=== PATIENT | male | born 1930 | race Caucasian/White ===

== ENCOUNTER 2018-08-14 21:35 | Inpatient (IN) | payer OTHER, MEDICAID ==
[2018-08-14] MEDS ORDERED: fentaNYL 100 MCG/2 ML INJ IVP ONE (21:56)
[2018-08-14 22:10] LABS: PLATELET COUNT 186 10^3/uL (150-400)
--- NOTE | 2018-08-14 22:12 | EDPHY ---
H & P Smoking Status: Former smoker Time Seen by Provider: 08/14/18 21:43 HPI/ROS: CLINICAL IMPRESSION: Closed, left greater trochanteric fracture, left elbow contusion and abrasion ASSESSMENT/PLAN: 87-year-old male who lives alone in the [facility] presents to the emergency department by EMS after he fell outside while trying to walk to his out house tonight. Patient did not hit his head, is complaining only of left hip and elbow pain. He is not anticoagulated. He reports a history of hypertension, osteoporosis, and hyperlipidemia although it is unclear if he is fully compliant with his medications. He also arrives hypoxic at 78% on room air but does report that he was told he should use oxygen and never did so. He has no complaints of shortness of breath or chest pain. Initial x-rays of the left hip and pelvis show possible greater trochanteric fracture, follow-up CT scan confirms this. There is no extension into the femoral neck. X-rays of the left elbow are negative for acute bony abnormality in fracture. Patient reports his tetanus is up-to-date. He is unable to ambulate due to pain. Discussed with Dr. Ibanez with Orthopedics who will see the patient tomorrow. Patient is agreeable to admission and will be admitted to hospitalist service in stable condition. DIFFERENTIAL DX: Differential includes but not limited to left hip fracture, pelvic fracture, femur fracture, left elbow fracture, soft tissue contusion ED PROCEDURES: See lab and/or imaging results below ED COURSE: CT results discussed with Radiology, positive for closed left greater trochanteric fracture without tension into the femoral neck. No evidence of elbow fracture. Results discussed with Ortho and hospitalist. Patient wear results. Will plan to admit. Case management will likely need to be involved given patient's living situation. CHIEF COMPLAINT: Fall, left hip pain HPI: 87-year-old male presents to the emergency department by EMS after he had an unwitnessed ground level fall outside of his home. Patient [place] an out house approximately 50 yd away. Patient reports he was attempting to walk to the out house without a light, tripped and fell onto his left hip. He crawled back to his home and called EMS. Patient is accompanied by his son in the ED. According to EMS, patient lives independently in a[place]"and also is a significant hoarder. Patient's son reports that he is noncompliant with recommended oxygen use and arrives hypoxic at 79%. He states he takes"some kind of blood pressure medication"but is unclear when he last saw his primary care doctor. He is complaining only of left hip and elbow pain. He did not hit his head. He denies anticoagulation. He reports no chest pain, shortness of breath, headache , dizziness, lightheadedness. He reports his tetanus is up-to-date PAST MEDICAL HISTORY: HTN, hyperlipidemia, osteoporosis, chronic hypoxia, noncompliant on oxygen See triage summary and nurse notes for addition applicable history Pertinent Past Surgical History: None reported Family History: Noncontributory Social History: Smokes cigars, drinks occasionally, lives alone in the [facility] REVIEW OF SYSTEMS: A full 10 point review of systems was negative except for those mentioned in HPI. PHYSICAL EXAM: General Appearance: Alert, oriented, appropriate, cooperative, cachectic, NAD, hypoxic at 79% on room air on arrival HEENT: No hemotympanum or Boston sign. No scalp contusion, hematoma or sign of trauma. Oropharynx clear is no erythema or exudates, no tonsillar hypertrophy or asymmetry. Eyes: PERRLA, no acute vision change, nystagmus, swelling, discharge, pain or photosensitivity. Neck: Supple, nontender, no lymphadenopathy, no midline pain, FROM, no meningismus. Respiratory: There are no retractions, lungs are clear to auscultation. No chest wall pain or rib pain to palpation Cardiac: Regular rate and rhythm, no murmurs or gallops. Gastrointestinal: Abdomen is soft, nontender, bowel sounds normal, no masses/ hernia, no rigidity, guarding or focal peritoneal findings. Skin: Warm, dry, no rashes, no nodules on palpation, skin tear and abrasion to medial epicondyle of the left elbow.. Musculoskeletal: Reproducible pain to palpation of the greater trochanter on the left hip, pain with rocking pelvis, pain to palpation of proximal femur. Superficial skin tear to medial epicondyle of left elbow with pain to palpation. Full range of motion of the elbow. MEDICAL DECISION MAKING: Patient was seen independently. Secondary supervising physician at time of evaluation was: Dr Mcgee. Diagnosis: Closed left greater trochanteric fracture, left elbow contusion. New , requires workup Summary: See Assessment and Plan for summary of ED visit Clinical lab tests: ordered / reviewed. Independent visualization of images, tracing, or specimens: yes. Decision to obtain medical records or history from someone other than the patient: EMS, patient's son Review / Summarize previous medical records: None available Discussed patient with another provider: EMS, radiology, hospitalist, Orthopedics, Dr. Mcgee. Patient Progress: Stabilized for admission. (Mal Borjas) Constitutional: Initial Vital Signs Temperature (C) 36.6 C 08/14/18 21:44 Heart Rate 84 08/14/18 21:44 Respiratory Rate 20 08/14/18 21:44 Blood Pressure 141/73 H 08/14/18 21:44 O2 Sat (%) 79 L 08/14/18 21:44 O2 Delivery Mode Nasal Cannula O2 (L/minute) 4 Allergies/Adverse Reactions: No Known Allergies Allergy (Verified 08/17/14 13:03) Home Medications: Medication Instructions Recorded ALENDRONATE SODIUM [Fosamax 5mg] 5 mg PO DAILY 08/17/14 Aspirin [Aspirin 325 mg (OTC)] 325 mg PO DAILY 08/17/14 Carvedilol [Coreg (*)] 08/17/14 Hydrocodone/APAP 5/325 [Eagle 1 each PO Q4-6PRN PRN #14 tab 08/17/14 5/325 (*)] Mometasone/Formoterol [Dulera 200 8.8 gm IH 08/17/14 Mcg/5 Mcg Inhaler] Simvastatin [Zocor] 20 mg PO DAILY18 08/17/14 MDM/Departure - [facility] Imaging Results: Imaging Impressions Hip X-Ray 08/14/18 21:55 Impression: No evidence of acute displaced fracture as described Elbow X-Ray 08/14/18 22:13 Impression: Large soft tissue hematoma containing radiopaque foreign body without evidence of acute, displaced fracture. Extremity CT 08/14/18 22:27 Impression: Greater trochanteric fracture as described Mal Borjas was notified of these findings by telephone at 11:23 PM on 2017 Medications Given: Discontinued Medications Fentanyl (Sublimaze) 50 mcg IVP EDNOW ONE Stop: 08/14/18 21:57 Last Admin: 08/14/18 22:05 Dose: 50 mcg ED Course/Re-evaluation: PHYSICIAN DOCUMENTATION: The patient was evaluated and managed by the Physician Recorder Helper Seismograph and myself. I have reviewed the chart and agree with the findings and plan of care as documented. In addition, I examined the patient myself at 2210. History confirmed as fall, no syncope. Physical findings as follows: Cooperative but cannot walk, vital signs reviewed. Xray, CT, admission, orthopedic consultation. I am the secondary supervising physician. (Dru Mcgee) - Depart Disposition: [facility] In[facility] Acute Clinical Impression: Fracture of greater trochanter of left femur Qualifiers: Encounter type: initial encounter Fracture type: closed Fracture alignment: displaced Qualified Code(s): S72.112A - Displaced fracture of greater trochanter of left femur, initial encounter for closed fracture Condition: Fair
[2018-08-15] MEDS ORDERED: ONDANSETRON 4 MG/2 ML VIAL IVP PRN (01:28)
[2018-08-15] MEDS ORDERED: ACETAMINOPHEN 325 MG TAB PO PRN (01:28)
[2018-08-15] MEDS ORDERED: ONDANSETRON DISINTEGRATING 4 MG TAB PO PRN (01:28)
[2018-08-15] MEDS ORDERED: NS 1,000 ML IV SCH (01:30)
--- NOTE | 2018-08-15 05:20 | GHP ---
DATE OF ADMISSION: 08/14/2018 PRIMARY CARE PHYSICIAN: Patient without a PCP. SOURCE: Patient provides history, appears reliable. EMR was reviewed and case discussed with ED pro vider. CHIEF COMPLAINT: Left hip pain and fall. HISTORY OF PRESENT ILLNESS: This is a pleasant 87-year-old gentleman with a past medical history sig nificant for COPD with chronic hypoxia, noncompliant on O2, HTN, HLD, osteoporosis, reported CHF, who presents to the emergency department today following a mechanical fall at home. Patient lives in [facility] and was having sensation of urgency, reporting 1 episode of diarrhea earlier today and ra n out to get himself to the out house. However, given his sense of urgency, he did not have feel he had time to grab a flashlight. It was pitch black outside. The patient tripped and fell on a rock h e believes. He landed on his left side, left hip and left elbow. Patient was not able to get back u p due to increased pain in his left hip. Due to the cold weather in [place], patient did not want to freeze to . The patient dragged himself back to his home. By report, paramedics were conta cted. However, they had difficulties entering the home due to its condition reported as a hoarding s ituation. It took them approximately 15 minutes to enter the home and get to the patient. Preceding his fall, patient denies any chest pain, palpitations, lightheadedness, changes in vision or focal d eficits. Patient denies any current numbness, tingling, but does report persistent left hip pain. W hen patient was found, he was noted to be 79% on room air and has a reported history of having O2 rec ommended to wear continuously. However, patient has opted not to do so. He also reports that remote ly, he has been admitted for CHF exacerbations in the past and pleural effusions. Patient reports ch ronic lower extremity edema which has not significantly changed at this time and close to baseline. He denies any fevers or chills. REVIEW OF SYSTEMS: Ten systems are reviewed. They are negative except as noted above. HOME MEDICATIONS: Listed in EMR, but unable to verify are: Simvastatin 20 mg at bedtime, Dulera 200 /5 mcg inhaled, Dawson 5/325 p.r.n., Coreg, aspirin, Fosamax. PAST MEDICAL HISTORY: Significant for HTN, osteoporosis, HLD, chronic hypoxia due to COPD and noncom pliance with oxygen recommendations, reported CHF, and chronic lower extremity edema. PAST SURGICAL HISTORY: Bilateral cataract extraction with lens placement. FAMILY HISTORY: Noncontributory. SOCIAL HISTORY: Patient continues to smoke cigars. [place] house. He does have a stove for heat present. He drinks occasional alcohol. Does not use an y illicit drugs. CODE STATUS: Full. Patient would like his son, Jared Cary, to act as proxy if needed. PHYSICAL EXAMINATION: VITAL SIGNS: Upon arrival to the emergency department: Blood pressure is 141 /73, heart rate 84, respiratory rate 20, O2 saturation 79% on room air, temperature 36.6. Current vi tals available: Blood pressure is 124/78, heart rate is 84, respiratory rate 18, O2 saturation 96% o n 4 L by nasal cannula. GENERAL: No acute distress. Pleasant but frail-appearing elderly gentleman is lying quietly in bed. He is quite disheveled and cachectic appearing. HEAD: Normocephalic, atr aumatic. EYES: Extraocular muscles are grossly intact. Pupils equal, round, react to light bilater ally and symmetric. No scleral icterus or conjunctival injection. Lens reflex is appreciated bilate rally. ENT: Mucous membranes appear moist. Some mild oropharyngeal erythema without exudates. Mul tiple missing dentition with poor condition of the remainder of dentition. No nasal discharge. NECK : Supple. Trachea midline. CV: Regular rate and rhythm. No murmurs, rubs, or gallops appreciated . RESPIRATORY: Coarse breath sounds appreciated, bilateral lower lung oconnell. No wheezes or rhonch i appreciated. Patient with some minimal increased work of breathing with movement or conversation. No acute distress. ABDOMEN: Positive bowel sounds. Soft, nontender to palpation. No rebound, gua rding, or masses appreciated. : No suprapubic tenderness to palpation. No Lisa catheter in plac e. MUSCULOSKELETAL: Generalized deconditioning and weakness. Patient with 3+ pitting edema, bilate ral lower extremities. Chronic skin changes, verrucous appearance, bilateral toes. Patient with mul tiple abrasions to his lower extremities and knees. Edema below the knee. Left hip with extensive c ontusion of the lateral hip. Patient with multiple abrasions to the bilateral knees and lower extrem ities as well as upper extremities. NEURO: Grossly nonfocal. Generalized weakness. Able to move d istal extremities. Proximal lower extremity limited due to left hip pain. Patient generalized weakn ess in the upper extremities. PSYCH: Patient's thought process, content, and questions appear appro priate. He is pleasant and cooperative. LABORATORY STUDIES: WBC is 9.64, H and H are 17.1, 52.4, MCV of 104.2, platelet count is 186, neutro catie percent 82.9%. No bands. Sodium is 138, potassium is 4.3, chloride 109, CO2 is 23, anion gap i s 6, BUN 33, creatinine is 1.2, GFR 58, glucose is 105, calcium is 8.7. IMAGING STUDIES: Hip x-ray: Negative evidence for acute displaced fracture. Moderate degenerative changes seen in the hips with disk space narrowing, marginal osteophyte formation. No evidence of av ascular necrosis. Scattered radiopaque densities seen overlying the pelvis and perineum. Elbow seri es on the left: Large soft tissue hematoma. Continued radiopaque foreign body without evidence of a cute displaced fracture. Left lower extremity CT showing a greater trochanteric fracture that is mil dly displaced. Femoral neck appears grossly intact. Large amount of soft tissue edema and hemorrhag e seen in the subcutaneous tissues of the left thigh. ASSESSMENT AND PLAN: Malcolm 87-year-old gentleman who sustained a mechanical fall at home, who pre sents with complaints of left hip pain. 1. Left mildly displaced trochanteric fracture. Orthopedics has been consulted and will see the pat ieholli in the morning. He has been made n.p.o. pending their evaluation and recommendations. 2. Acute left hip pain due to trauma. P.r.n. Tylenol, Dawson, and morphine for severe pain. At this time, patient reports that his pain is improved with just being still. Given his respiratory status , we will try to minimize narcotic use. 3. Acute on chronic hypoxia. Patient without any increased exacerbation at this time. Patient does note a history of congestive heart failure. Chest x-ray has been ordered. Echocardiogram in the mo rning. Offered patient nebulizer treatments and/or breathing treatments, and he declined at this lina e. He is saturating well with 4 L of oxygen by nasal cannula. 4. Benign essential hypertension. Blood pressures are acceptable at this time. We will need to shawn eric patient's home med rec before resuming his antihypertensives. 5. Hyperlipidemia. Resume statin when med rec verified. 6. Osteoporosis. The patient is on Fosamax at home. 7. Fluid, electrolyte, nutrition: Saline lock IV at this time, pending additional workup for conges tive heart failure. Electrolytes will be monitored and replaced if needed. The patient appears curr ently stable. Initiate diuresis in the morning. N.p.o. status pending Orthopedic's recommendations. 8. Prophylaxis. Holding sequential compression devices due to diffuse abrasions to bilateral lower extremities. Holding anticoagulation also at this time pending surgery recommendations. 9. Code status is full. Patient desires his son, Jared, to act as proxy if needed. 10. Disposition: The patient admitted to inpatient status on the Med/Surg floor for additional eval uation and treatment regarding his left trochanteric fracture and additional evaluation of patient's hypoxia and dyspnea. /[id number]/MODL
[2018-08-15 08:39] LABS: PLATELET COUNT 155 10^3/uL (150-400)
--- NOTE | 2018-08-15 08:57 | GCON ---
REASON FOR CONSULTATION: I was asked to evaluate this patient by the emergency room. HISTORY OF PRESENT ILLNESS: The patient sustained a fall earlier resulting in left hip pain. I revi ewed the images. They demonstrate a left greater trochanter fracture, without extension into the int ertrochanteric region. IMPRESSION: Left greater trochanteric fracture, closed. ASSESSMENT/PLAN: This is a nonoperative fracture. The patient can weightbear as tolerated. He may have pain with abduction, so I think it is reasonable to place him on abduction precautions. He can, otherwise, weightbear as tolerated and have a regular diet today. I will evaluate him shortly. If there are any questions, please do not hesitate to contact me further. /[id number]/MODL
--- NOTE | 2018-08-15 10:46 | PDMN ---
Medical Necessity Medical necessity: Pt meets inpt criteria per MD order and Musculoskeletal Disease GRG. 87 y/o presents w/acute L hip pain after mech fall, admitted w/L displaced trochanteric fx, ortho consult- fx non-operative, also acute on chronic hypoxia requiring 3-4 L O2. PMH includes hypoxia due to COPD and noncompliance w/O2 recommendations, HTN, osteoporosis, chronic LE edema, and reported CHF. ECHO, PT/OT, and wound care consult pending. Est LOS>2MN for ongoing eval/management of above.
--- NOTE | 2018-08-15 12:54 | ECHO ---
[email or web address] [address] [address] Main: [phone] Fax: Transthoracic Echocardiogram Name: COLIN MCADAMS MR#: [id number] Study Date: 08/15/2018 Study Time: 08:01 AM Date of : 1930 Age: 87 year(s) Height: 182.9 cm (72 in.) Weight: 63.5 kg (140 lb.) BSA: 1.83 m2 Gender: Male Examination: Echo Indication: Dyspnea/edema Image Quality: Technically Difficult Contrast: Requested by: Jessica Fuentes BP: 102 mmHg/65 mmHg Heart Rate: Rhythm: Indication: Dyspnea/edema Procedure Staff Fiction And Nonfiction Prose Writer: Devora Cox RDCS Reading Physician: Anthony Santiago MD Requesting Provider: Conclusions: Normal size left ventricle. Normal global systolic LV function. The ejection fraction is estimated to be 70-75 %. No regional wall motion abnormality. Severely dilated right ventricle. Moderately to severely reduced right ventricular function. The left atrium is normal in size. The right atrium is moderately dilated. Trivial mitral valve regurgitation. Moderate aortic cusp calcification is present. Moderate aortic valve regurgitation is present. No aortic valve stenosis is present. Moderate tricuspid regurgitation is present. The pulmonary artery pressure is severely increased. Right ventricular systolic pressure measures 79mmHg. The IVC is dilated. No pericardial effusion. Measurements: Chambers Valvular Assessment AV/MV Valvular Assessment TV/PV Normal Normal Normal Name Value Range Name Value Range Name Value Range IVSd (2D): 0.9 cm (0.6 cm-1.1 AV Vmax: 1.34 m/s (1 m/s-1.7 TR Vmax: 3.83 mm/s ( - ) cm) m/s) TR PGmax: 59 mmHg ( - ) LVDd (2D): 4.4 cm (4.2 cm-5.9 AV meanP mmHg ( - ) syst. PAP: 79 mmHg ( - ) cm) MV E Vmax: 0.38 m/s ( - ) LVDs (2D): 2.4 cm (2.1 cm-4 MV A Vmax: 0.54 m/s ( - ) cm) MV E/A: 0.70 ( - ) LVPWd (2D): 0.9 cm (0.6 cm-1 cm) Patient: COLIN MCADAMS Study Date: 08/15/2018 Page 1 of 2 08:01 AM LVOTd 2.4 cm 2.4 cm mm LVEF (2D): 78 (>=54 %) EF Range: 70-75 % Continued Measurements: Chambers Valvular Assessment AV/MV Valvular Assessment TV/PV Name Value Name Value Name Value LADs: 2.1 cm MV E' Septal: 0.04 m/s CVP (est.): 20 mmHg MV E/E' Septal: 8.70 MV E/E' Lateral: 4.40 Findings: Left Ventricle: Normal size left ventricle. No LV hypertrophy. Normal global systolic LV function. The ejection fraction is estimated to be 70-75 %. No regional wall motion abnormality. Grade 1 diastolic dysfunction (abnormal relaxation). Right Ventricle: Severely dilated right ventricle. Moderately to severely reduced right ventricular function. There is a moderator band noted in the right ventricle. Left Atrium: The left atrium is normal in size. Right Atrium: The right atrium is moderately dilated. Mitral Valve: There is mild thickening of the mitral valve leaflets. Moderate mitral annular calcification. Trivial mitral valve regurgitation. Aortic Valve: Mild aortic cusp calcification is noted. Moderate aortic cusp calcification is present. Moderate aortic valve regurgitation is present. No aortic valve stenosis is present. Tricuspid Valve: There is mild thickening of the tricuspid valve leaflets. Moderate tricuspid regurgitation is present. The pulmonary artery pressure is severely increased. Right ventricular systolic pressure measures 79mmHg. RVSP is 79mmHG.. Pulmonic Valve: Pulmonary valve not well visualized. Aorta: The aorta is normal. IVC: The IVC is dilated. Pericardium: No pericardial effusion. (No Signature Object) Patient: COLIN MCADAMS Study Date: 08/15/2018 Page 2 of 2 08:01 AM [id number]
--- NOTE | 2018-08-15 13:22 | HOSPPROG ---
Hospitalist Progress Note Assessment/Plan: Mr Cary is an 87-year-old gentleman who sustained a mechanical fall at home, who presents with complaints of left hip pain. First encounter, chart reviewed. *Left mildly displaced trochanteric fracture. -evaluated by ortho - surgery not recommended * Acute left hip pain due to trauma. - P.r.n. Tylenol, [place], and morphine for severe pain. * Acute on chronic hypoxia. - on 4 liters - Chest x-ray shows copd, emphysema - Echocardiogram show severely dilated r ventricle and mod to severely reduced RV function - suspect this is from MYRNA, emphysema - PE could be in the differential *cardiomyopathy -will ask cardiology to see -on ACEI and beta zane, but holding due to low bp -hx of an ME per family -also has hx of alcohol use * hypertension -now hypotensive * Hyperlipidemia. -Resume statin * Osteoporosis. 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 feet, toes *underweight w a BMI of 19 *plan: spoke w Dr Santiago, cardiology will see. Will check a BNP in the morning. Spent > 30 minutes caring for the patient, discussing code status with the patient's son, this needs to be further discussed. [place], but has heat. Drives to get food weekly. Family is very concerned. He has mulitple abrasions, skin tears, dirt under his nails. They will look into other living arrangements. He will need a SNF at wa Subjective: Scott isn't having much pain while resting. Objective: Vital Signs Temp Pulse Resp BP Pulse Ox 36.9 C 70 16 89/43 L 96 08/15/18 11:44 08/15/18 11:44 08/15/18 11:44 08/15/18 11:44 08/15/18 11:44 Laboratory Results 08/15/18 07:55 08/15/18 07:55 08/14/18 08/15/18 08/16/18 05:59 05:59 05:59 Intake Total 0 320 Output Total 500 Balance 0 -180 - Physical Exam Constitutional: chronically ill appearing, unkempt, other (thin) Eyes: PERRL Ears, Nose, Mouth, Throat: hearing normal Cardiovascular: regular rate and rhythym Respiratory: no respiratory distress, bronchial breath sounds, rhonchi (at right base) Skin: warm, other (right hand reddened, multiple hughes scrapes, 3 + pitting lower ext edema, no palpable pulses, but warm. Skin on toes, heels w lichen ( thick). ) Neurologic: AAOx3 Psychiatric: interacting appropriately, poor insight ICD10 Worksheet Patient Problems: Problems Problem Status Onset Fracture of greater trochanter of left femur Acute
[2018-08-15] MEDS ORDERED: NS 250 ML IV ONE (13:26)
[2018-08-15] MEDS: FLUTICASONE/SALMETER 250/50MCG DISKUS IH SCH ×2 (13:37→21:31)
--- NOTE | 2018-08-15 14:40 | ASMTCMCOM ---
CM Note CM Note Notes: Pt with numerous co-morbidities here for non-operative L trochanteric fx. [place] to his outhouse. EMS reports a hoarding situation and difficulty entering home. Pt PT/OT eval on hold today as pt is hypotensive. Pt likely needs SNF, [facility] will have to approve after therapy evals are in [facility]. Pt son Jared present at bedside, numbers in chart. Spoke with pt and son, pt verbalizes understanding of need for SNF and likely not returning to his home in [place] after rehab. Informed pt and son the [facility] is [facility]. CM to follow. D/c plan of care: Likely [facility] if [facility] approves. Date Signed: 08/15/2018 02:40 PM Electronically Signed By:HENRY Barber
--- NOTE | 2018-08-15 14:53 | WOCRNPDOC ---
WOCRJaren Advanced Assessment Note - Skin Integrity Problem, Advanced Assess Right Lower Leg Blister Dressing Type: Open to Air Exudate Amount: None Integumentary Issue Intervention: Dressing Applied Libra Wound Tissue: Lipodermatosclerosis, Hemosiderin Staining, Venous Dermatitis , Shiny, Taught, Xerotic, Hair Loss Pulse Location & Description: unable to dopplar pulses, though RN Meagan was able to obtain bilateral DP pulses by dopplar. Extremity Temperature: Warm Peripheral Edema Location & Description: 3+ pitting Skin Integrity Problem Comment: Patient with venous dermatitis and LEVD. SHORTY's will clarify whether or not it is safe to apply high compression. Discussed LEVD with patient and friends in room. No venous ulcerations at this time and patient reports having no history of them. Patient amenable to light compression at this time. He will not be able to put on his compression socks at home by himself. Recommend a "vianney" to help him apply his stockings. This was conveyed to ed case manager. Blister is likely from edema and not related to venous insufficiency. Patient with lichenification on bilateral feet/heels/ toes. Will initiate atractain cream for lichenification. Onychomycosis; needs to see a port steward when d/c d from hospital. Education pamphlet re: LEVD will be provided. Measurement for right calf: 36 cm and left 38 cm. Spandigrip F provided. Wound care will sign off.
--- NOTE | 2018-08-15 15:27 | ASMTCMCOM ---
CM Note CM Note Notes: Per wound care pt will require vianney for applying compression socks if he goes home, pt unable to put them on himself. CM to follow up with OT if pt does not get approved for SNF by [place]. Date Signed: 08/15/2018 03:27 PM Electronically Signed By:HENRY Barber
[2018-08-15] MEDS: HYDROCODONE/APAP 5/325 TAB PO PRN (15:41)
[2018-08-15] MEDS: ALBUTEROL 60 PUFFS/8 GM MDI IH PRN (16:53)
[2018-08-15] MEDS ORDERED: FUROSEMIDE 20 MG/2 ML VIAL IVP ONE (16:59)
[2018-08-15] MEDS ORDERED: CARVEDILOL 6.25 MG TAB PO SCH (18:00)
--- NOTE | 2018-08-15 18:24 | GPROG ---
I saw and evaluated Scott today at the bedside. He complains of left hip pain. He does have some lef t hip pain with axial loading and logroll, but not excruciatingly so. He also has tenderness to palp ation over the greater trochanter. He has pain with active abduction. IMAGING REVIEW: See my prior notes. IMPRESSION: Left greater trochanter fracture without extension into the intertrochanteric region. ASSESSMENT/PLAN: The patient has a left nondisplaced closed fracture of the greater trochanteric reg ion. From my perspective, this can be treated non surgically. He should be placed on abduction prec autions (no passive adduction and no active adduction) for a total of 6 weeks. It appears as though the patient has a number of social issues that probably preclude his medical ones at this time. I wi ll defer entirely to the medical team regarding further management of this. I am happy to see the loc nixon in the hospital as long as he is cared for, and I am happy to answer any questions moving forwa rd. Upon discharge, would like to see the patient in a couple weeks following his discharge to see h ow well he has progressed with any sort of home therapy. If any further questions arise, please do n ot hesitate to contact me on my cell phone at [phone]. /[id number]/MODL
--- NOTE | 2018-08-15 19:19 | GCON ---
CARDIOLOGY CONSULTATION INDICATION FOR CARDIOLOGY CONSULTATION: Dilated right RV with cardiomyopathy. REQUESTING PROVIDER: Tanisha Blunt NP, Hospital Services. HISTORY OF PRESENT ILLNESS: The patient is an 87-year-old male who lives alone in [place]. Patient is a poor historian, most of the HPI is from chart review. The patient had suffered a mechanical fall on August 14. He was unable to walk. EMS was called, he was brought into the emergency department, it was found that he had a left greater trochanter fracture. He has been evaluated by Orthopedic, and found that this is a nonsurgical fracture. Also upon arrival, he was found to be extremely hypoxic, and did undergo echocardiogram as part of his workup, it did note that he had normal LV size with normal LV systolic function, his EF was estimated between 70-75%, with no regional wall abnormalities, he was noted to have a severely dilated RV, with moderate to severe reduced RV function, his LA is normal, his RA is moderately dilated, he was noted to have trivial MR, moderate AI, moderate TR, and severe pulmonary pressures with RVSP of 79 mmHg with dilated inferior vena cava. No pericardial effusion. Per chart, the patient has significant past history that includes COPD with chronic hypoxia, noncompliant to O2, hypertension, hyperlipidemia, current smoker, there is also a question about some history about previous [place], which the patient denies of any previous stents. He has also been reporting approximately 10 years ago being hospitalized for CHF at a [facility], is uncertain which. At the current time, the patient reports ongoing shortness of breath, but reports no history of chest pressure or pain. Reporting no palpitations, denies of any orthopnea, PND, near-syncope or syncopal events. Does report he has chronic peripheral edema. Reporting no symptoms suggesting of TIA or CVA. Denies of any recent fevers, chills, night sweats. PAST MEDICAL HISTORY: 1. Chronic obstructive pulmonary disease with chronic hypoxia, which he has been known to be noncompliant with O2. 2. Hypertension. 3. Hyperlipidemia. 4. Reported history of questionable [place] in the past. 5. Reporting history of congestive heart failure in which he was hospitalized 10 years ago. 6. Current smoker. PAST SURGICAL HISTORY: Bilateral cataract extraction with lens placement. SOCIAL HISTORY: Patient lives alone in a house with no running water, but with heat. He continues to smoke on a daily basis. He has a history of alcohol abuse and occasionally continues to use EtOH, denies of any illicit drug use. FAMILY HISTORY: Noncontributory. ALLERGIES: No known allergies. HOME MEDICATIONS: Multivitamin 1 tablet p.o. daily, lisinopril 2.5 mg p.o. daily, herbs and supplements p.o. daily, Advair 250/50 one puff inhaled twice daily, Proscar 5 mg p.o. daily, Carvedilol 6.25 mg p.o. twice daily with meals, Flomax 0.8 mg p.o. at bedtime, Zocor 40 mg p.o. at bedtime, nitroglycerin 0.4 mg subcu q.4 minutes p.r.n., furosemide 20 mg p.o. daily, albuterol 1-2 puffs inhaled q.4 hours p.r.n. LABORATORY STUDIES: Drawn today show WBC of 7.13, hemoglobin 14.5, hematocrit 44.7, platelet count of 155, sodium 137, potassium 4.0, chloride 110, CO2 26, BUN 33, creatinine 1.0, glucose 75, calcium 7.9. PHYSICAL EXAMINATION: GENERAL APPEARANCE: Thin, cachectic, elderly male. He is alert to person and place, but uncertain about time and situation. VITAL SIGNS: Current vital signs are blood pressure 101/67, heart rate 82 and irregular. Respirations are 22, saturating 85% on 4 L nasal cannula, temperature 37.4 degrees Celsius. HEENT: Head is normocephalic. Lips and tongue are pink and moist with no signs of cyanosis. Conjunctivae pink. NECK: +2 carotid pulses bilateral, patient noted to have significant JVD of at least 6 cm above the sternal notch at a 45 degree angle. No auscultated bruits. RESPIRATORY: Patient with rhonchi in upper lobes, mild rales noted in bases bilateral. No accessory muscle use. No intercostal muscle retraction noted. CARDIAC: Regular rate, irregular rhythm, S1, S2, no S3 or 4, 1-2/6 systolic murmur noted along the left sternal border. ABDOMEN: Soft, nontender, bowel sounds x4 quadrants, no organomegaly, no palpable masses. SKIN: Pale, warm, dry, +2 to 3 peripheral edema bilateral lower extremities to knees. VASCULAR: +2 carotids bilateral, +1 radials bilateral, +1 post tibial pulses bilateral. STUDIES: Echocardiogram as mentioned above, CT of the left lower extremity showing greater trochanter fracture. Chest x-ray done on the day of admission showing prominent interstitial markers inferior aspect of right upper lobe lateral as well as right midlung lateral. This could be related to some fibrotic changes although in interstitial infiltrates pneumocystis cannot be ruled out. Hyperexpanded lungs with underlying COPD and possible emphysema, old healed fractures of posterior lateral ribs, [id number] anterior wedge compression fracture superior of T3. Electrocardiogram done at the time of my examination showing sinus rhythm with PVCs, occasional bigeminy. Q-waves noted in V1 and V2, low voltage. With inverted T-waves in V1 and V2 questioning possible anterior septal infarct. 1. RV dilated cardiomyopathy: Patient echo showing significant reduced RV function, normal LV function. Patient also noted to have significant elevated pulmonary pressures, significant pulmonary hypertension. Potential cause is his COPD, but concerning about PE. I have discussed with hospital services: I do think that CTA of the chest should be done at some point during this hospitalization. 2. Acute on chronic hypoxia: At this time, the patient is desaturating on his oxygen, he has significant JVD, he has rales in his bases. Appears to be somewhat fluid overloaded.. I have ordered Lasix therapy for tonight. Continue on oxygen therapy, continue on COPD medications as ordered by hospital services. 2. Hypertension: Patient with noted history of hypertension, currently hypotensive, and required IV bolus of saline to help elevate blood pressure. Recommend no further episodes of IV fluid. Currently CATHY inhibitors on hold. He also has carvedilol ordered, but has not received a dose due to lower blood pressures. At this time, I will switch him over to metoprolol tartrate, which should not drop his blood pressure as significant as carvedilol, and allow him to stay on a beta-zane. , I do think the patient should be transferred to PCU for closer monitoring. If need be for extended hypotension, vaso pressors therapy should be considered. This was discussed with hospitalist service. 3. History of potential coronary artery disease: Per the chart the patient family reported previous [place]. Patient does not remember TX, but said he had heart failure. He reports no chest pain, pressure or symptoms suggesting of ischemia. His echocardiogram did not note any LV dysfunction. We will start him on low-dose aspirin therapy. He has been resumed on statin therapy for secondary risk prevention. Beta blockage therapy as mentioned above. 4. Hyperlipidemia: Patient with history of hyperlipidemia, currently on statin therapy. 5. Left trochanteric fracture, per orthopedic nonsurgical. Defer to hospitalist services and orthopedic for pain management. Thank you for the consultation. We will be glad to follow along with you. /[id number]/MODL MTDD
[2018-08-15] MEDS: METOPROLOL TARTRATE 25 MG TAB PO SCH (21:00)
[2018-08-15] MEDS: ATORVASTATIN CALCIUM 20 MG TAB PO SCH (21:02)
[2018-08-16] MEDS: HYDROCODONE/APAP 5/325 TAB PO PRN (08:44)
[2018-08-16] MEDS: ASPIRIN 81 MG CHEWABLE TAB PO SCH (08:44)
[2018-08-16] MEDS: METOPROLOL TARTRATE 25 MG TAB PO SCH (08:44)
[2018-08-16] MEDS: FLUTICASONE/SALMETER 250/50MCG DISKUS IH SCH ×2 (08:50→21:06)
[2018-08-16] MEDS ORDERED: IOPAMIDOL (ISOVUE 370) 100 ML BTL IV ONE (10:28)
[2018-08-16] MEDS ORDERED: IOPAMIDOL (ISOVUE-300) 100 ML BTL ONE (11:22)
--- NOTE | 2018-08-16 13:33 | HOSPPROG ---
Hospitalist Progress Note Assessment/Plan: Mr Cary is an 87-year-old gentleman who sustained a mechanical fall at home, who presents with complaints of left hip pain. First encounter, chart reviewed. *Left mildly displaced trochanteric fracture. -evaluated by ortho - surgery not recommended * Acute left hip pain due to trauma. - P.r.n. Tylenol, [place], and morphine for severe pain. * Acute on chronic hypoxia. 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 Lewis, Pulmonology, who will see patient, f/u official recommendations - Will order Heparin gtt for now *cardiomyopathy - Cardiology consulted on 08/15 s/p dose of IV lasix - on ACEI and beta zane, but holding due to low bp - hx of an [place] per family - also has hx of alcohol use - Continue home ASA * hypertension -now hypotensive, holding medications * Hyperlipidemia. -Resume statin * Osteoporosis. 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 feet, toes *underweight w a BMI of 19 Subjective: Patient reports no complaints this AM Objective: Vital Signs Temp Pulse Resp BP Pulse Ox 36.6 C 74 1 L 91/56 L 95 08/16/18 10:59 08/16/18 10:59 08/16/18 10:59 08/16/18 10:59 08/16/18 10:59 Laboratory Results 08/15/18 07:55 08/16/18 03:44 08/15/18 08/16/18 08/17/18 05:59 05:59 05:59 Intake Total 0 1020 Output Total 1980 200 Balance 0 -960 -200 - Physical Exam Constitutional: chronically ill appearing, unkempt Eyes: PERRL Ears, Nose, Mouth, Throat: moist mucous membranes Cardiovascular: regular rate and rhythym Respiratory: reduced air movement Gastrointestinal: soft, non-tender abdomen Musculoskeletal: pain with ROM Neurologic: AAOx3 Psychiatric: interacting appropriately ICD10 Worksheet Patient Problems: Problems Problem Status Onset Fracture of greater trochanter of left femur Acute
[2018-08-16] MEDS ORDERED: HEPARIN 10,000 UNIT/10 ML MDV (1,000 UNIT/ML) IVP PRN ×3 (13:44→17:55)
[2018-08-16] MEDS ORDERED: HEPARIN/DEXTROSE 500 ML IV SCH ×2 (13:45)
--- NOTE | 2018-08-16 13:56 | PDCARPN ---
Cardiology Progress Note Chief Complaint: Patient reporting hip pain. Assessment/Plan: Assessment: 87-year-old with history of COPD, chronic hypoxia (non compliant O2), hyperlipidemia attention, hyperlipidemia, current smoker, and questionable history of previous [place], and reported history of CHF hospitalization 10 years ago. Admitted on 08/14/2018, for mechanical fall, with diagnosis of left greater trochanter fracture without extension into the intertrochanteric region. Part of his workup, underwent echocardiogram, on 08/15, noting normal LV systolic function, EF of 70 75% with no regional wall motion abnormality. Severely dilated RV with moderate to severely reduced RV function. Moderate AI , moderate TR, severe pulmonary artery pressures with RVSP of 79 mm Hg. IVC dilation. No pericardial effusion. Femoral fractures been evaluated by Orthopedics, and felt to be nonsurgical. Patient reporting no history of chest pain or pressure. Has been noted since hospitalization to have episodes hypotension, and desaturation. 08/16/2018: Patient saturation improved today after low-dose Lasix given yesterday. Unfortunately remains hypotensive with systolic blood pressure averaging low 100s, mid 90s. Laboratories today showing BNP 8880. CTA of chest done, suggesting chronic partial thrombus in both main pulmonary arteries and bifurcating with enlarged pulmonary arteries centrally. Mildly dilated ascending aorta at 4.0 cm, arthrosclerotic calcification coronary arteries, severely underlying is central lobular emphysema both lungs. Small left pleural effusion and minimal right pleural effusion. Patient reports no chest pain pressure or symptoms suggesting of cardiac ischemia. Continues cardiac monitoring showing sinus rhythm with occasional PVC. No other malignant arrhythmias or pauses. Plan: 1. 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 Have discussed with Dr. Dawkins, Dr. Cruz and Dr. Fajardo. Would recommend anticoagulation, Dr. Dawkins would like pulmonology to see before final decision , referral has been made. 2. Right-sided heart failure: RV dilated cardiomyopathy by echocardiogram, probable cause by pulmonary embolism and long history of COPD. Severe pulmonary hypertension echo. Elevated BNP, significant lower extremity edema. Patient has been hypotensive, and with his RV cardiomyopathy, he is preload dependent. Will hold diuresis today. 3. Acute on chronic hypoxic: SpO2 more stable today after gentle diuresis last evening with Lasix. No rales noted in bases this morning. Patient continue on oxygen therapy in good pulmonary toilet. 4. Coronary artery disease: Per patient's family he has had a previous [place]. Coronary arthrosclerosis calcification noted on CT scan. Patient reporting no chest pain or pressure suggesting of ischemia. Echocardiogram noting normal LV systolic function with no wall motion abnormality. Continue on aspirin therapy. Patient has been resumed on statin therapy. 5. Hypertension: Patient has been hypotensive during hospitalization. Home lisinopril has been discontinued. Had been transition to metoprolol tartrate from carvedilol, but continues to be hypotensive. Will discontinue metoprolol at this time. Continue monitor. 6. Hyperlipidemia: Resumed on statin therapy. 7. Left hip fracture: Orthopedics has seen, felt nonsurgical. Defer to them and hospitalist services for pain management. 08/16/18 13:53 Subjective: He reports no chest pain or pressure. He reports his shortness of breath has improved. Denies of any palpitations, lightheadedness, near-syncope or syncopal events. Reviewed/Discussed With: hospitalist (Dr. Dawkins), other (Dr. Cruz and Dr. Fajardo) Objective: Vital Signs (8 Hrs) Temp Pulse Resp BP Pulse Ox 08/16/18 10:59 36.6 C 74 1 L 91/56 L 95 08/16/18 08:05 83 L 08/16/18 07:44 37.1 C 73 18 99/50 L 92 Intake/Output (24 Hrs) 08/15/18 08/16/18 08/17/18 05:59 05:59 05:59 Intake Total 0 1020 Output Total 1979 Balance 0 -960 -200 Intake: Oral (ml) 0 770 IV Infused (ml) 250 Ns 250 ml @ 125 mls/hr IV 250 ONCE ONE Rx#:[id number] Output: Urine (ml) 1979 200 Bedpan 250 Urinal 1730 200 Other: Weight 63.503 kg 63.503 kg Number of Voids Urinal 5 Result Diagrams: 08/15/18 07:55 08/16/18 03:44 - Physical Exam Constitutional: no apparent distress, cachectic (BMI 19. ) Ears, Nose, Mouth, Throat: moist mucous membranes Cardiovascular: regular rate and rhythm, no rubs, jugular vein distention (5-6 cm above sternal notch), pulses symmetric bilat, No carotid bruit Peripheral Pulses: 2+: carotid (R), carotid (L) Respiratory: other (Diminished in bases bilateral, no rales noted today. No wheezing. Rhonchi that clears with cough.) Gastrointestinal: normoactive bowel sounds Skin: warm, No no edema (+3 peripheral edema bilateral lower extremities to thighs.) Neurologic: No AAOx3 (Alert to place in time, uncertain of the person and time) Psychiatric: cooperative, interactive, following commands ICD10 Worksheet Patient Problems: Problems Problem Status Onset Fracture of greater trochanter of left femur Acute
[2018-08-16 15:29] LABS: INR 1.19 (0.83-1.16); PROTIME(PATIENT) 15.3 SEC (12.0-15.0)
[2018-08-16] MEDS ORDERED: FUROSEMIDE 40 MG/4 ML VIAL IVP ONE (17:32)
--- NOTE | 2018-08-16 17:32 | PDCONSULT ---
Documentation Analyst Note: ASSESSMENT 87-year-old male with severe COPD and tobacco dependence admitted after a fall in found to have acute on chronic hypoxemic respiratory failure, severe pulmonary hypertension with overt RV failure as well as imaging concerning for atypical chronic thromboembolic disease. # acute on chronic hypoxemic respiratory failure # acute right ventricular heart failure # severe pulmonary hypertension # chronic thromboembolic disease. Radiographic appearance is not typical for acute embolism or classic for chronic thromboembolic disease but is more consistent longstanding COPD and possible ASD leading to chronic clot lining the proximal PAs # tobacco dependence. Last smoked 9 days ago. 80+ pack year history # hyperlipidemia PLAN # initiate Lasix and spironolactone (K sparing effect and RV remodeling) # fluid removal should improve RV coupling and improve hemodynamics # Initiate full-dose anticoagulation with heparin infusion # no role for thrombolysis # no role for hypercoagulability workup # consider limited TTE with bubble to assess for shunt. However this would not roving changer in the acute setting # patient is NOT a surgical candidate for pulmonary endarterectomy given advanced COPD, age and functional status # unfortunately, PH specific therapies are relatively contraindicated given patient's severe lung disease and systemic hypotension and would likely worsen his condition # inhaled beta agonists have been shown to improve pulmonary vascular reserve and cardiac output without increases in LVEDP. Circ Res. 2018 Jun 17 # if patient further decompensate suggest transfer to the ICU for vasopressor support # if vasopressor support is needed suggest low-dose dopamine and vasopressin # would defer cardiac catheterization as it would not acutely roving changer # agree with statin and aspirin therapy as both have disease attenuating properties in COPD # suggest discharging patient on oral Eliquis as he is unlikely to be compliant with Lovenox and lives too far away for regular INR checks with warfarin. # consider calcium and vitamin-D supplementation given likely osteoporosis # suggest having goals of care and advanced directive conversation with patient. He would not survive a cardiopulmonary arrest and has high likelihood of coding upon induction for intubation. # His one year risk of mortality is very high IMAGING 08/16/2018 CTA chest severe emphysematous changes throughout lung oconnell. Moderate size filling defects in bilateral proximal pulmonary arteries with eccentric Shabbir lined thrombus. Bronchial artery collaterals suggest chronic pulmonary hypertension and chronic thromboembolic disease. Odd shaped appearance of organized thrombus however this can be seen in patients with ASD and chronic thromboembolic pulmonary hypertension. No significant distal vessel dropout. Imaging is not classic for CTEPH 08/15/2018 TTE normal LV size and function. Severely dilated right ventricle. Moderate to severely reduced right ventricular function. LA normal in size. RA moderately dilated. Moderate aortic regurgitation, RVSP measured 79%. IVC dilated CONSULT I was asked by Dr. Ramón Dawkins of [facility] to evaluate this patient for pulmonary embolism and RV failure HPI Scott is a very pleasant 87-year-old male with severe COPD, chronic hypoxemic respiratory failure non adherence to oxygen therapy an 80 pack year smoking history who was initially admitted after mechanical fall and found to have a left hip fracture. As part of the preoperative workup he underwent an echocardiogram concerning for RV failure pulmonary hypertension. His oxygen saturation briefly improved after acute given 1 dose of IV Lasix. Patient denies lightheadedness, syncope, fevers or chills, nausea vomiting, chest pain. He does complain of mild chronic shortness of breath worse with exertion. Allergies No known drug allergies Past medical history Patient is followed head [place]. He has systemic hypertension, osteoporosis, hyperlipidemia, chronic hypoxemic respiratory from longstanding COPD and noncompliant with oxygen therapy, chronic lower extremity edema, tobacco dependence Social history Patient lives alone in a cabin in [place] min outside of [place]. He smokes cigars daily. Family history No family history of chronic thromboembolic disease. Review of systems A comprehensive 10 point review of systems was obtained is negative except as per HPI Physical exam Vitals reviewed pulse 78, blood pressure 118/78 map 91, respiratory rate 20 93% on 5 L nasal cannula GEN: Cachectic disheveled male no acute distress NEURO: A&Ox3, CN 2-12 GI HEENT: PERRL, EOMI, MMM, OP clear NECK: supple, trachea midline CHEST normal shape, no pes excavatum CVS: rrr prominent S2, displaced PMI, no gallops appreciated on my exam PULM: CTA B, no wheezes/rales/rhonchi ABD: soft, NT, ND, NABS EXT: To 3+ bilateral lower extremity edema SKIN: warm, dry, intact, no rash PSYCH CAM negative, appropriate affect Labs reviewed BNPP 8800
[2018-08-16] MEDS: SPIRONOLACTONE 25 MG TAB PO SCH (17:43)
[2018-08-16] MEDS: ATORVASTATIN CALCIUM 20 MG TAB PO SCH (21:06)
[2018-08-17] MEDS: SPIRONOLACTONE 25 MG TAB PO SCH (08:02)
[2018-08-17] MEDS: ASPIRIN 81 MG CHEWABLE TAB PO SCH (08:02)
[2018-08-17] MEDS: FLUTICASONE/SALMETER 250/50MCG DISKUS IH SCH ×2 (08:37→21:31)
[2018-08-17] MEDS ORDERED: IPRATROPIUM/ALBUTEROL 3 ML DEYVIAL IH PRN (10:20)
--- NOTE | 2018-08-17 10:38 | SOAPPROG ---
SOAP Progress Note Assessment/Plan: 1. 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 Jerry note 2. Right-sided heart failure - Secondary to COPD, PE, and hypoxemia. --> Agree with lasix and spironolactone 3. Coronary artery disease - Per patient's family he has had a previous MA. Coronary arthrosclerosis calcification noted on CT scan. Patient reporting no chest pain or pressure suggesting of ischemia. Echocardiogram with normal LV systolic function with no wall motion abnormality. --> Continue asa and atorvastatin 4. Hypertension - Patient has a history of HTN. His BP was previously well controlled on lisinopril and coreg. His BP has been low since admission likely secondary to pulmonary HTN impairing LV pre-load. --> Resume lisinopril as BP will tolerate. 5. Hyperlipidemia - --> Continue atorvastatin 6. Left hip fracture - Orthopedics has seen, felt to be nonsurgical. Subjective: No chest pain No orthopnea or PND No ambulation + hip pain Objective: Vital Signs Temp Pulse Resp BP Pulse Ox 36.7 C 66 16 99/53 L 94 08/17/18 07:11 08/17/18 08:42 08/17/18 08:42 08/17/18 07:11 08/17/18 08:42 Laboratory Results 08/15/18 07:55 08/16/18 03:44 08/16/18 08/17/18 08/18/18 05:59 05:59 05:59 Intake Total 1020 1811 Output Total 1980 1425 250 Balance -960 386 -250 PT 15.3 SEC (12.0-15.0) H 08/16/18 14:50 INR 1.19 (0.83-1.16) H 08/16/18 14:50 Physical Exam - Physical Exam General Appearance: alert, no apparent distress Respiratory: other (distant BS B) Cardiac/Chest: regular rate, rhythm Abdomen: non-tender, soft Extremities: pedal edema Neuro/Psych: alert ICD10 Worksheet Patient Problems: Problems Problem Status Onset Fracture of greater trochanter of left femur Acute
[2018-08-17] MEDS ORDERED: FUROSEMIDE 40 MG/4 ML VIAL IVP ONE (11:07)
[2018-08-17] MEDS: HYDROCODONE/APAP 5/325 TAB PO PRN (11:39)
--- NOTE | 2018-08-17 12:17 | PDINTPN ---
Biomedical Equipment Technician Progress Note Assessment/Plan: ASSESSMENT 87-year-old male with severe COPD and tobacco dependence admitted after a fall in found to have acute on chronic hypoxemic respiratory failure, severe pulmonary hypertension with overt RV failure as well as imaging concerning for atypical chronic thromboembolic disease. # acute on chronic hypoxemic respiratory failure # acute right ventricular heart failure # severe pulmonary hypertension # chronic thromboembolic disease. Radiographic appearance is not typical for acute embolism or classic for chronic thromboembolic disease but is more consistent longstanding COPD and possible ASD leading to chronic clot lining the proximal PAs # tobacco dependence. Last smoked 9 days ago. 80+ pack year history # hyperlipidemia PLAN # Lasix and spironolactone (K sparing effect and RV remodeling) # fluid removal should improve RV coupling and improve hemodynamics # supplemental oxygen to prevent hypoxemia and worsening of pulmonary arterial vasoconstriction # goal negative 1-2 L/day max # Full-dose anticoagulation with heparin infusion # no role for thrombolysis # no role for hypercoagulability workup # consider limited TTE with bubble to assess for shunt. However this will not pattern changer and repairer in the acute setting # patient is NOT a surgical candidate for pulmonary endarterectomy given advanced COPD, age and functional status # unfortunately, PH specific therapies are relatively contraindicated given patient's severe lung disease and systemic hypotension and would likely worsen his condition # inhaled beta agonists have been shown to improve pulmonary vascular reserve and cardiac output without increases in LVEDP. Circ Res. 2018 Jun 17 # if patient further decompensate suggest transfer to the ICU for vasopressor support # if vasopressor support is needed suggest low-dose dopamine and vasopressin # would defer cardiac catheterization as it would not acutely pattern changer and repairer # agree with statin and aspirin therapy as both have disease attenuating properties in COPD # suggest discharging patient on oral Eliquis as he is unlikely to be compliant with Lovenox and lives too far away for regular INR checks with warfarin. # consider calcium and vitamin-D supplementation given likely osteoporosis # suggest having goals of care and advanced directive conversation with patient. He would not survive a cardiopulmonary arrest and has high likelihood of coding upon induction for intubation. # His one year risk of mortality is very high IMAGING I personally reviewed interpreted patient's radiographic images well as formal radiology reads. 08/16/2018 CTA chest severe emphysematous changes throughout lung oconnell. Moderate size filling defects in bilateral proximal pulmonary arteries with eccentric Shabbir lined thrombus. Bronchial artery collaterals suggest chronic pulmonary hypertension and chronic thromboembolic disease. Odd shaped appearance of organized thrombus however this can be seen in patients with ASD and chronic thromboembolic pulmonary hypertension. No significant distal vessel dropout. Imaging is not classic for CTEPH 08/15/2018 TTE normal LV size and function. Severely dilated right ventricle. Moderate to severely reduced right ventricular function. LA normal in size. RA moderately dilated. Moderate aortic regurgitation, RVSP measured 79%. IVC dilated Subjective: Initiated on diuresis and spironolactone yesterday. Patient was slightly net neg on formal I/O however had more unmeasured voids due to incontinence. Patient states he feels better today. Less short of breath. Still complaining of chronic lower extremity edema. No syncope, no presyncope, no fevers chills nausea vomiting Objective: Vital Signs Temp Pulse Resp BP Pulse Ox 36.7 C 85 16 99/53 L 89 L 08/17/18 07:11 08/17/18 11:00 08/17/18 11:00 08/17/18 07:11 08/17/18 11:54 Laboratory Results 08/15/18 07:55 08/16/18 03:44 08/16/18 08/17/18 08/18/18 05:59 05:59 05:59 Intake Total 1020 1811 Output Total 1980 1425 250 Balance -960 386 -250 PT 15.3 SEC (12.0-15.0) H 08/16/18 14:50 INR 1.19 (0.83-1.16) H 08/16/18 14:50 Physical Exam - Physical Exam General Appearance: alert, no apparent distress EENT: PERRL/EOMI, normal ENT inspection Neck: non-tender, full range of motion Respiratory: chest non-tender, other Cardiac/Chest: other (S3 present, no murmurs elevated JVD. Positive edema) Abdomen: normal bowel sounds, non-tender Skin: normal color, warm/dry Neuro/Psych: no motor/sensory deficits, alert, normal mood/affect, oriented x 3 ICD10 Worksheet Patient Problems: Problems Problem Status Onset Fracture of greater trochanter of left femur Acute
[2018-08-17] MEDS ORDERED: LACTULOSE 20 GM/30 ML UDCUP PO PRN (12:33)
[2018-08-17] MEDS ORDERED: POLYETHYLENE GLYCOL 3350 17 GM PKT PO PRN (12:33)
[2018-08-17] MEDS ORDERED: BISACODYL 10 MG SUPP PR PRN (12:33)
[2018-08-17] MEDS ORDERED: MAGNESIUM HYDROXIDE 30 ML UDCUP PO PRN (12:33)
--- NOTE | 2018-08-17 13:22 | HOSPPROG ---
Hospitalist Progress Note Assessment/Plan: Mr Cary is an 87-year-old gentleman who sustained a mechanical fall at home, who presents with complaints of left hip pain. First encounter, chart reviewed. *Left mildly displaced trochanteric fracture. -evaluated by ortho - surgery not recommended * Acute left hip pain due to trauma. - P.r.n. Tylenol, [place], and morphine for severe pain. * Acute on chronic hypoxia. - on 4 liters - Chest x-ray shows copd, emphysema - Echocardiogram show severely dilated r ventricle and mod to severely reduced RV function - CTA performed on 08/16 with findings suggesting chronic partial thrombus in both main pulmonary arteries and bifurcation with enlarged pulmonary arteries centrally indicating underlying PA HTN - CTA also showing severe underlying centrilobular emphysema, and peribronchial wall thickening bilaterally - Pulmonology consulted, appreciate recommendations, started Lasix IV and Spironolactone PO *Bilateral PE, Chronic - Seen on CTA this morning - Discussed case with Dr. Lewis, Pulmonology, who recommends continuing heparin infusion, transition to oral AC - Continue Heparin gtt for now, plan to transition to Apixaban prior to d/c *cardiomyopathy - Cardiology consulted on 08/15 - on ACEI and beta zane, but holding due to low bp - hx of an NC per family - also has hx of alcohol use - Continue home ASA - IV Lasix and Spironolactone as above * hypertension -now hypotensive, holding medications * Hyperlipidemia. -Resume statin * Osteoporosis. 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 feet, toes *underweight w a BMI of 19 Subjective: Patient reports pain in b/l LE this morning Objective: Vital Signs Temp Pulse Resp BP Pulse Ox 36.8 C 68 24 H 117/67 86 L 08/17/18 12:00 08/17/18 12:00 08/17/18 12:00 08/17/18 12:00 08/17/18 12:00 Laboratory Results 08/15/18 07:55 08/16/18 03:44 08/16/18 08/17/18 08/18/18 05:59 05:59 05:59 Intake Total 1020 1811 Output Total 1980 1425 250 Balance -960 386 -250 PT 15.3 SEC (12.0-15.0) H 08/16/18 14:50 INR 1.19 (0.83-1.16) H 08/16/18 14:50 - Physical Exam Constitutional: chronically ill appearing, unkempt Eyes: PERRL Ears, Nose, Mouth, Throat: moist mucous membranes Cardiovascular: regular rate and rhythym Respiratory: no respiratory distress, reduced air movement Gastrointestinal: soft, non-tender abdomen Skin: warm Musculoskeletal: pain with ROM Neurologic: AAOx3 Psychiatric: interacting appropriately ICD10 Worksheet Patient Problems: Problems Problem Status Onset Fracture of greater trochanter of left femur Acute
--- NOTE | 2018-08-17 14:56 | ASMTCMCOM ---
CM Note CM Note Notes: CM spoke with pt's son Jared Cary ([phone]). He is working with is siblings to plan for discharge and next steps. CM provided education on Palliative Care and SNF. Provided family with [facility]. CM spoke with pt and he is aware of updates for SNF and agreeable to go to SNF once we get insurance auth. CM submit referral to [facility]. Pt and family wants to speak with Palliative Care team. CM to follow. Plan: [facility] with Palliative Care ([place]). Date Signed: 08/17/2018 02:55 PM Electronically Signed By:MIESHA Emery
[2018-08-17] MEDS: HEPARIN/DEXTROSE 500 ML IV SCH (16:10)
[2018-08-17] MEDS: ATORVASTATIN CALCIUM 20 MG TAB PO SCH (20:59)
[2018-08-17] MEDS: SENNOSIDES/DOCUSATE SODIUM TAB PO SCH (21:00)
--- NOTE | 2018-08-18 08:21 | CPEKG ---
Test Reason : OPEN Blood Pressure : / mmHG Vent. Rate : 076 BPM Atrial Rate : 082 BPM P-R Int : 172 ms QRS Dur : 113 ms QT Int : 418 ms P-R-T Axes : 071 265 082 degrees QTc Int : 471 ms Sinus rhythm Ventricular bigeminy Anteroseptal infarct, age indeterminate Confirmed by Scott Harper ([id number]) on 08/18/2018 8:20:52 AM Referred By: Confirmed By:Scott Harper
[2018-08-18] MEDS: SENNOSIDES/DOCUSATE SODIUM TAB PO SCH ×2 (09:25→20:52)
[2018-08-18] MEDS: SPIRONOLACTONE 25 MG TAB PO SCH (09:26)
[2018-08-18] MEDS: ASPIRIN 81 MG CHEWABLE TAB PO SCH (09:26)
[2018-08-18] MEDS: NICOTINE 14 MG/24 HR PATCH TD SCH (09:26)
[2018-08-18] MEDS: FLUTICASONE/SALMETER 250/50MCG DISKUS IH SCH ×2 (10:22→20:00)
[2018-08-18] MEDS ORDERED: CANN-EASE 2 GM TUBE TP PRN (10:32)
[2018-08-18] MEDS: HEPARIN/DEXTROSE 500 ML IV SCH (13:37)
[2018-08-18] MEDS ORDERED: FUROSEMIDE 40 MG/4 ML VIAL IVP ONE ×2 (13:50→19:00)
--- NOTE | 2018-08-18 13:55 | HOSPPROG ---
Hospitalist Progress Note Assessment/Plan: Mr Cary is an 87-year-old gentleman who sustained a mechanical fall at home, who presents with complaints of left hip pain. First encounter, chart reviewed. *Left mildly displaced trochanteric fracture. -evaluated by ortho - surgery not recommended * Acute left hip pain due to trauma. - P.r.n. Tylenol, [place], and morphine for severe pain. * Acute on chronic hypoxia. - on 4 liters - Chest x-ray shows copd, emphysema - Echocardiogram show severely dilated r ventricle and mod to severely reduced RV function - CTA performed on 08/16 with findings suggesting chronic partial thrombus in both main pulmonary arteries and bifurcation with enlarged pulmonary arteries centrally indicating underlying PA HTN - CTA also showing severe underlying centrilobular emphysema, and peribronchial wall thickening bilaterally - Pulmonology consulted, appreciate recommendations, started Lasix IV and Spironolactone PO, will give 40 mg IV Lasix this AM *Bilateral PE, Chronic - Seen on CTA this morning - Discussed case with Dr. Lewis, Pulmonology, who recommends continuing heparin infusion, transition to oral AC - Continue Heparin gtt for now, plan to transition to Apixaban tonight *cardiomyopathy - Cardiology consulted on 08/15 - on ACEI and beta zane, but holding due to low bp - hx of an MD per family - also has hx of alcohol use - Continue home ASA - IV Lasix and Spironolactone as above * hypertension -now hypotensive, holding medications * Hyperlipidemia. -Resume statin * Osteoporosis. 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 feet, toes *underweight w a BMI of 19 *Goals of care - Patient has overall poor prognosis given multiple comorbidities - Discussed with patient who reports he wants to continue current treatment, remain FULL code - Will discuss with POA, son, Jared - Consulted Palliative care today for further Goals of Care discussion Objective: Vital Signs Temp Pulse Resp BP Pulse Ox 36.6 C 79 24 H 81/49 L 93 08/18/18 13:30 08/18/18 13:30 08/18/18 13:30 08/18/18 13:30 08/18/18 13:30 Laboratory Results 08/18/18 03:24 08/18/18 03:24 08/17/18 08/18/18 08/19/18 05:59 05:59 05:59 Intake Total 1811 1109 Output Total 2626 5236 019 Balance 745 -460 -921 PT 15.3 SEC (12.0-15.0) H 08/16/18 14:50 INR 1.19 (0.83-1.16) H 08/16/18 14:50 ICD10 Worksheet Patient Problems: Problems Problem Status Onset Fracture of greater trochanter of left femur Acute
--- NOTE | 2018-08-18 14:30 | ASMTCMCOM ---
CM Note CM Note Notes: Per hospitalist, patient will transition to oral AC today and likely dc to [facility] tomorrow. I updated [facility] as well as patient's son Jared. Case Management will follow. Date Signed: 08/18/2018 02:28 PM Electronically Signed By:Loni Merritt RN
--- NOTE | 2018-08-18 17:01 | PDINTPN ---
Featherer Progress Note Assessment/Plan: Assessment: 87-year-old male with severe COPD and tobacco dependence admitted after a fall in found to have acute on chronic hypoxemic respiratory failure, severe pulmonary hypertension with overt RV failure as well as imaging concerning for atypical chronic thromboembolic disease. # acute on chronic hypoxemic respiratory failure # acute right ventricular heart failure # severe pulmonary hypertension # chronic thromboembolic disease. Radiographic appearance is not typical for acute embolism or classic for chronic thromboembolic disease but is more consistent longstanding COPD and possible ASD leading to chronic clot lining the proximal PAs # tobacco dependence. Last smoked 9 days ago. 80+ pack year history # hyperlipidemia PLAN # Lasix and spironolactone (K sparing effect and RV remodeling) # fluid removal should improve RV coupling and improve hemodynamics # supplemental oxygen to prevent hypoxemia and worsening of pulmonary arterial vasoconstriction # goal negative 1-2 L/day max # Full-dose anticoagulation with heparin infusion # no role for thrombolysis # no role for hypercoagulability workup # consider limited TTE with bubble to assess for shunt. However this will not gear changer in the acute setting # patient is NOT a surgical candidate for pulmonary endarterectomy given advanced COPD, age and functional status # unfortunately, PH specific therapies are relatively contraindicated given patient's severe lung disease and systemic hypotension and would likely worsen his condition # inhaled beta agonists have been shown to improve pulmonary vascular reserve and cardiac output without increases in LVEDP. Circ Res. 2018 Jun 17 # if patient further decompensate suggest transfer to the ICU for vasopressor support # if vasopressor support is needed suggest low-dose dopamine and vasopressin # would defer cardiac catheterization as it would not acutely gear changer # agree with statin and aspirin therapy as both have disease attenuating properties in COPD # suggest discharging patient on oral Eliquis as he is unlikely to be compliant with Lovenox and lives too far away for regular INR checks with warfarin. # consider calcium and vitamin-D supplementation given likely osteoporosis # suggest having goals of care and advanced directive conversation with patient. He would not survive a cardiopulmonary arrest and has high likelihood of coding upon induction for intubation. # I strongly encouraged him to use supplemental oxygen in order to maintain normal oxygen saturations. He has refused this in the past, seen that is too much of a hassle, but with strong encouragement and explanation of the rationale for using oxygen, he agrees to its use now D/W Dr. Lewis 08/18/18 17:01 Subjective: Feels better, with increased energy and a bit less dyspnea. He has very minimal cough. Objective: Vital Signs Temp Pulse Resp BP Pulse Ox 36.5 C 88 24 H 100/44 L 98 08/18/18 15:38 08/18/18 15:38 08/18/18 15:38 08/18/18 15:38 08/18/18 15:38 Laboratory Results 08/18/18 03:24 08/18/18 03:24 08/17/18 08/18/18 08/19/18 05:59 05:59 05:59 Intake Total 1811 1109 420 Output Total 1425 2075 725 Balance 386 -966 -305 PT 15.3 SEC (12.0-15.0) H 08/16/18 14:50 INR 1.19 (0.83-1.16) H 08/16/18 14:50 CT Chest: Extensive severe emphysema. Images reviewed by me. Physical Exam - Physical Exam General Appearance: alert, no apparent distress EENT: normal ENT inspection Neck: normal inspection Respiratory: decreased breath sounds Cardiac/Chest: regular rate, rhythm, No edema Abdomen: normal bowel sounds, non-tender, soft Skin: normal color, warm/dry Extremities: normal inspection Neuro/Psych: no motor/sensory deficits, alert, normal mood/affect ICD10 Worksheet Patient Problems: Problems Problem Status Onset Fracture of greater trochanter of left femur Acute
[2018-08-18] MEDS: ATORVASTATIN CALCIUM 20 MG TAB PO SCH (20:52)
[2018-08-18] MEDS: APIXABAN 5 MG TAB PO SCH (20:52)
[2018-08-19] MEDS: FLUTICASONE/SALMETER 250/50MCG DISKUS IH SCH ×2 (08:25→20:25)
[2018-08-19] MEDS: APIXABAN 5 MG TAB PO SCH ×2 (09:38→21:25)
[2018-08-19] MEDS: SENNOSIDES/DOCUSATE SODIUM TAB PO SCH ×2 (09:39→21:25)
[2018-08-19] MEDS: ASPIRIN 81 MG CHEWABLE TAB PO SCH (09:39)
[2018-08-19] MEDS: NICOTINE 14 MG/24 HR PATCH TD SCH (09:39)
[2018-08-19] MEDS: SPIRONOLACTONE 25 MG TAB PO SCH (10:50)
--- NOTE | 2018-08-19 14:08 | ASMTCMCOM ---
CM Note CM Note Notes: I spoke with patient's son Jared and Jenny today about next steps after SNF rehab. I explained difference between Assisted Living and Shelter Care and explained that patient needs extermination inspector Medicaid in order to go to either place. I encouraged them to work with social media marketing manager at [facility] to begin this application and start looking for facilities. They expressed understanding. I called Rosa Elena [place] [facility] APS worker ([phone]) to update her on patient's status (she left a business card at my desk last night). She was not in, and I did not leave a message. We will contact her when patient is d/c'ed. Current CM Discharge plan: [facility] Date Signed: 08/19/2018 02:07 PM Electronically Signed By:Loni Merritt RN
--- NOTE | 2018-08-19 14:44 | PDINTPN ---
Machine Tool Mechanic Progress Note Assessment/Plan: Assessment: 87-year-old male with severe COPD and tobacco dependence admitted after a fall in found to have acute on chronic hypoxemic respiratory failure, severe pulmonary hypertension with overt RV failure as well as imaging concerning for atypical chronic thromboembolic disease. # acute on chronic hypoxemic respiratory failure. Due to COPD, as well as secondary pulmonary HTN. # acute right ventricular heart failure # severe pulmonary hypertension # chronic thromboembolic disease. Radiographic appearance is not typical for acute embolism or classic for chronic thromboembolic disease but is more consistent longstanding COPD and possible ASD leading to chronic clot lining the proximal PAs # tobacco dependence. Last smoked 2 weeks ago. 80+ pack year history # hyperlipidemia PLAN # Lasix and spironolactone (K sparing effect and RV remodeling). Continue slow diuresis as tolerated # fluid removal should improve RV coupling and improve hemodynamics # supplemental oxygen to prevent hypoxemia and worsening of pulmonary arterial vasoconstriction # goal negative 1-2 L/day max # Full-dose anticoagulation with heparin infusion # no role for thrombolysis # no role for hypercoagulability workup # patient is NOT a surgical candidate for pulmonary endarterectomy given advanced COPD, age and functional status # unfortunately, PH specific therapies are relatively contraindicated given patient's severe lung disease and systemic hypotension and would likely worsen his condition # inhaled beta agonists have been shown to improve pulmonary vascular reserve and cardiac output without increases in LVEDP. Circ Res. 2018 Jun 17 # if patient further decompensate suggest transfer to the ICU for vasopressor support # if vasopressor support is needed suggest low-dose dopamine and vasopressin # would defer cardiac catheterization as it would not acutely pattern changer and repairer # agree with statin and aspirin therapy as both have disease attenuating properties in COPD # suggest discharging patient on oral Eliquis as he is unlikely to be compliant with Lovenox and lives too far away for regular INR checks with warfarin. # consider calcium and vitamin-D supplementation given likely osteoporosis # suggest having goals of care and advanced directive conversation with patient. He would not survive a cardiopulmonary arrest and has high likelihood of coding upon induction for intubation. # I strongly encouraged him to use supplemental oxygen in order to maintain normal oxygen saturations. He has refused this in the past, seen that is too much of a hassle, but with strong encouragement and explanation of the rationale for using oxygen, he agrees to its use now 08/19/18 14:42 Subjective: Feels a bit better, strength and endurance improved. Still has a cough, which is now more productive. Denies dyspnea. Objective: Vital Signs Temp Pulse Resp BP Pulse Ox 36.9 C 84 20 100/59 L 93 08/19/18 12:00 08/19/18 12:00 08/19/18 12:00 08/19/18 12:00 08/19/18 12:00 Laboratory Results 08/19/18 03:20 08/19/18 03:20 08/18/18 08/19/18 08/20/18 05:59 05:59 05:59 Intake Total 1109 1220 Output Total 1 7 Balance -966 -875 PT 15.3 SEC (12.0-15.0) H 08/16/18 14:50 INR 1.19 (0.83-1.16) H 08/16/18 14:50 Physical Exam - Physical Exam General Appearance: alert, no apparent distress EENT: normal ENT inspection Neck: normal inspection Respiratory: rhonchi Cardiac/Chest: regular rate, rhythm, edema (2+) Abdomen: normal bowel sounds, non-tender Skin: normal color, warm/dry Extremities: normal inspection Neuro/Psych: alert, normal mood/affect, No motor weakness ICD10 Worksheet Patient Problems: Problems Problem Status Onset Fracture of greater trochanter of left femur Acute
--- NOTE | 2018-08-19 14:50 | HOSPPROG ---
Hospitalist Progress Note Assessment/Plan: Mr Cary is an 87-year-old gentleman who sustained a mechanical fall at home, who presents with complaints of left hip pain. First encounter, chart reviewed. *Left mildly displaced trochanteric fracture. -evaluated by ortho - surgery not recommended * Acute left hip pain due to trauma. - P.r.n. Tylenol, [place], and morphine for severe pain. * Acute on chronic hypoxia. - on 4 liters - Chest x-ray shows copd, emphysema - Echocardiogram show severely dilated r ventricle and mod to severely reduced RV function - CTA performed on 08/16 with findings suggesting chronic partial thrombus in both main pulmonary arteries and bifurcation with enlarged pulmonary arteries centrally indicating underlying PA HTN - CTA also showing severe underlying centrilobular emphysema, and peribronchial wall thickening bilaterally - Pulmonology consulted, appreciate recommendations, started Lasix IV and Spironolactone PO, holding Lasix today due to low BP *Bilateral PE, Chronic - Seen on CTA this morning - Discussed case with Dr. Lewis, Pulmonology, who recommends continuing heparin infusion, transition to oral AC - Transitioned from Heparin gtt to Apixaban *cardiomyopathy - Cardiology consulted on 08/15 - on ACEI and beta zane, but holding due to low bp - hx of an [place] per family - also has hx of alcohol use - Continue home ASA - Lasix and Spironolactone as above * hypertension -now hypotensive, holding medications * Hyperlipidemia. -Resume statin * Osteoporosis. 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 feet, toes *underweight w a BMI of 19 *Goals of care - Patient has overall poor prognosis given multiple comorbidities - Discussed with patient who reports he wants to continue current treatment, remain FULL code - Discussed with POA, son, Jared, this afternoon who also wants to continue current tx - Consulted Palliative care today for further Goals of Care discussion Subjective: Patient reports no complaints this AM Objective: Vital Signs Temp Pulse Resp BP Pulse Ox 36.9 C 84 20 100/59 L 93 08/19/18 12:00 08/19/18 12:00 08/19/18 12:00 08/19/18 12:00 08/19/18 12:00 Laboratory Results 08/19/18 03:20 08/19/18 03:20 08/18/18 08/19/18 08/20/18 05:59 05:59 05:59 Intake Total 1109 1220 Output Total 1648 1776 Balance -966 -87 PT 15.3 SEC (12.0-15.0) H 08/16/18 14:50 INR 1.19 (0.83-1.16) H 08/16/18 14:50 - Physical Exam Constitutional: chronically ill appearing, unkempt Eyes: PERRL Ears, Nose, Mouth, Throat: moist mucous membranes Cardiovascular: edema Respiratory: reduced air movement Skin: warm Neurologic: AAOx3 Psychiatric: interacting appropriately ICD10 Worksheet Patient Problems: Problems Problem Status Onset Fracture of greater trochanter of left femur Acute
[2018-08-19] MEDS: CLOBETASOL 0.05% 15 GM CRTUBE TP SCH (21:24)
[2018-08-19] MEDS: ATORVASTATIN CALCIUM 20 MG TAB PO SCH (21:25)
[2018-08-20] MEDS: ALBUTEROL 60 PUFFS/8 GM MDI IH PRN (08:48)
[2018-08-20] MEDS: FLUTICASONE/SALMETER 250/50MCG DISKUS IH SCH ×2 (08:48→20:07)
[2018-08-20] MEDS: NICOTINE 14 MG/24 HR PATCH TD SCH (08:58)
[2018-08-20] MEDS: CLOBETASOL 0.05% 15 GM CRTUBE TP SCH ×2 (09:00→19:37)
[2018-08-20] MEDS: SPIRONOLACTONE 25 MG TAB PO SCH (09:00)
[2018-08-20] MEDS: SENNOSIDES/DOCUSATE SODIUM TAB PO SCH ×2 (09:00→19:35)
[2018-08-20] MEDS: ASPIRIN 81 MG CHEWABLE TAB PO SCH (09:00)
[2018-08-20] MEDS: APIXABAN 5 MG TAB PO SCH ×2 (09:00→19:35)
--- NOTE | 2018-08-20 12:20 | ASMTCMCOM ---
CM Note CM Note Notes: Pts case discussed in tx rounds this AM. CM spoke to chaplain Giuliano regarding d/c POC. Pt is agreeable to palliative services w/ [facility]. Referral sent to [facility]. Updates sent to Johana. CM to follow. Plan: [facility] w/ [facility] pal outpatient f/u Date Signed: 08/20/2018 12:20 PM Electronically Signed By:MIESHA Ryan
--- NOTE | 2018-08-20 13:21 | HOSPPROG ---
Hospitalist Progress Note Assessment/Plan: Mr Cary is an 87-year-old gentleman who sustained a mechanical fall at home, who presents with complaints of left hip pain. First encounter, chart reviewed. *Left mildly displaced trochanteric fracture. -evaluated by ortho - surgery not recommended * Acute left hip pain due to trauma. - P.r.n. Tylenol, [place], and morphine for severe pain. * Acute on chronic hypoxia. - on 4 liters - Chest x-ray shows copd, emphysema - Echocardiogram show severely dilated r ventricle and mod to severely reduced RV function - CTA performed on 08/16 with findings suggesting chronic partial thrombus in both main pulmonary arteries and bifurcation with enlarged pulmonary arteries centrally indicating underlying PA HTN - CTA also showing severe underlying centrilobular emphysema, and peribronchial wall thickening bilaterally - Pulmonology consulted, appreciate recommendations, started Lasix IV and Spironolactone PO, holding Lasix due to low BP *Bilateral PE, Chronic - Seen on CTA this morning - Discussed case with Dr. Lewis, Pulmonology, who recommends continuing heparin infusion, transition to oral AC - Transitioned from Heparin gtt to Apixaban *cardiomyopathy - Cardiology consulted on 08/15 - on ACEI and beta zane, but holding due to low bp - hx of an [place] per family - also has hx of alcohol use - Continue home ASA - Lasix and Spironolactone as above * hypertension -now hypotensive, holding medications * Hyperlipidemia. -Resume statin * Osteoporosis. 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 feet, toes *underweight w a BMI of 19 *Goals of care - Patient has overall poor prognosis given multiple comorbidities - Discussed with patient who reports he wants to continue current treatment, remain FULL code - Discussed with POA, son, Jared, this afternoon who also wants to continue current tx - Consulted Palliative care for further Goals of Care discussion Subjective: Patient reports no complaints this AM Objective: Vital Signs Temp Pulse Resp BP Pulse Ox 36.5 C 94 20 93/47 L 96 08/20/18 10:46 08/20/18 10:46 08/20/18 10:46 08/20/18 10:46 08/20/18 10:46 Laboratory Results 08/19/18 03:20 08/19/18 03:20 08/19/18 08/20/18 08/21/18 05:59 05:59 05:59 Intake Total 1220 680 Output Total 2095 275 250 Balance -875 405 -250 PT 15.3 SEC (12.0-15.0) H 08/16/18 14:50 INR 1.19 (0.83-1.16) H 08/16/18 14:50 - Physical Exam Constitutional: chronically ill appearing Eyes: PERRL Ears, Nose, Mouth, Throat: moist mucous membranes Cardiovascular: regular rate and rhythym, edema Respiratory: no respiratory distress Gastrointestinal: soft, non-tender abdomen Neurologic: AAOx3 Psychiatric: interacting appropriately ICD10 Worksheet Patient Problems: Problems Problem Status Onset Fracture of greater trochanter of left femur Acute
[2018-08-20] MEDS: HYDROCODONE/APAP 5/325 TAB PO PRN (13:37)
--- NOTE | 2018-08-20 15:34 | PDINTPN ---
[employer] Progress Note Assessment/Plan: Assessment: 87-year-old male with severe COPD and tobacco dependence admitted after a fall in found to have acute on chronic hypoxemic respiratory failure, severe pulmonary hypertension with overt RV failure as well as imaging concerning for atypical chronic thromboembolic disease. # acute on chronic hypoxemic respiratory failure. Due to COPD, as well as secondary pulmonary HTN. # acute right ventricular heart failure # severe pulmonary hypertension # chronic thromboembolic disease. Radiographic appearance is not typical for acute embolism or classic for chronic thromboembolic disease but is more consistent longstanding COPD and possible ASD leading to chronic clot lining the proximal PAs # tobacco dependence. Last smoked 2 weeks ago. 80+ pack year history # hyperlipidemia PLAN # Lasix and spironolactone (K sparing effect and RV remodeling). Continue slow diuresis as tolerated. Currently being held due to mild hypotension. # fluid removal should improve RV coupling and improve hemodynamics # supplemental oxygen to prevent hypoxemia and worsening of pulmonary arterial vasoconstriction # goal negative 1-2 L/day max. # Full-dose anticoagulation with heparin infusion # no role for thrombolysis # no role for hypercoagulability workup # patient is NOT a surgical candidate for pulmonary endarterectomy given advanced COPD, age and functional status # unfortunately, PH specific therapies are relatively contraindicated given patient's severe lung disease and systemic hypotension and would likely worsen his condition # inhaled beta agonists have been shown to improve pulmonary vascular reserve and cardiac output without increases in LVEDP. Circ Res. 2018 Jun 17 # if patient further decompensate suggest transfer to the ICU for vasopressor support # if vasopressor support is needed suggest low-dose dopamine and vasopressin # would defer cardiac catheterization as it would not acutely exchange consultant # agree with statin and aspirin therapy as both have disease attenuating properties in COPD # suggest discharging patient on oral Eliquis as he is unlikely to be compliant with Lovenox and lives too far away for regular INR checks with warfarin. # consider calcium and vitamin-D supplementation given likely osteoporosis # suggest having goals of care and advanced directive conversation with patient. He would not survive a cardiopulmonary arrest and has high likelihood of coding upon induction for intubation. # I strongly encouraged him to use supplemental oxygen in order to maintain normal oxygen saturations. He has refused this in the past, seen that is too much of a hassle, but with strong encouragement and explanation of the rationale for using oxygen, he agrees to its use now 08/20/18 15:36 Subjective: Feels a bit better, strength improved, less dyspneic. Mild cough persists. Objective: Vital Signs Temp Pulse Resp BP Pulse Ox 36.9 C 76 20 100/43 L 99 08/20/18 15:22 08/20/18 15:22 08/20/18 15:22 08/20/18 15:22 08/20/18 15:22 Laboratory Results 08/19/18 03:20 08/19/18 03:20 08/19/18 08/20/18 08/21/18 05:59 05:59 05:59 Intake Total 1220 680 Output Total 2095 275 250 Balance -875 405 -250 PT 15.3 SEC (12.0-15.0) H 08/16/18 14:50 INR 1.19 (0.83-1.16) H 08/16/18 14:50 Physical Exam - Physical Exam General Appearance: alert, no apparent distress EENT: normal ENT inspection Neck: normal inspection Respiratory: lungs clear Cardiac/Chest: edema (2+), No regular rate, rhythm (regularly irregular) Abdomen: normal bowel sounds, non-tender Skin: normal color, warm/dry Extremities: normal inspection Neuro/Psych: alert, normal mood/affect ICD10 Worksheet Patient Problems: Problems Problem Status Onset Fracture of greater trochanter of left femur Acute
[2018-08-20] MEDS: ATORVASTATIN CALCIUM 20 MG TAB PO SCH (19:35)
[2018-08-21] MEDS: HYDROCODONE/APAP 5/325 TAB PO PRN ×2 (01:18→15:44)
[2018-08-21] MEDS: CLOBETASOL 0.05% 15 GM CRTUBE TP SCH (06:17)
[2018-08-21] MEDS: SPIRONOLACTONE 25 MG TAB PO SCH (08:35)
[2018-08-21] MEDS: APIXABAN 5 MG TAB PO SCH (08:35)
[2018-08-21] MEDS: ASPIRIN 81 MG CHEWABLE TAB PO SCH (08:35)
[2018-08-21] MEDS: SENNOSIDES/DOCUSATE SODIUM TAB PO SCH (08:35)
[2018-08-21] MEDS: NICOTINE 14 MG/24 HR PATCH TD SCH (08:35)
[2018-08-21] MEDS: FLUTICASONE/SALMETER 250/50MCG DISKUS IH SCH (08:39)
--- NOTE | 2018-08-21 12:06 | PDIAF ---
- Diagnosis Code Status: Full Code - Medication Management Discharge Medications: electronically signed and located in the Home Medication List. - Orders Services needed: Home Care, Registered Nurse, Physical Therapy, Occupational Therapy Home Care Face to Face: I certify that this patient was under my care and that I had the required [id number] encounter meeting the encounter requirements on the discharge day. My findings support the fact that the patient is homebound as defined in Home Care Face to Face Continued: CMS Chapter 7 Medicare Benefits Manual 30.1.1 , The condition of the patient is such that there exists a normal inability to leave home and consequently, leaving home would require a considerable and taxing effort. Additional Instructions: Flu vaccine administered 08/19/18. - Follow Up Care Current Providers and Referrals: Elia Ibanez MD [Medical Doctor] - (1-2 weeks after discharge - per Dr Ibanez) Patient,NotPresent [Primary Care Provider] - As per Instructions
--- NOTE | 2018-08-21 12:13 | PDDCSUM ---
Discharge Summary Discharge Summary: Date of Admission: 08/14/2018 Date of Discharge: 08/21/2018 Consults: Cardiology, Orthopaedics, Pulmonology Followup: PCP, Cardiology, Orthopaedics, Pulmonology Hospital Course Problem List: Mr Cary is an 87-year-old gentleman who sustained a mechanical fall at home, who presents with complaints of left hip pain. First encounter, chart reviewed. *Left mildly displaced trochanteric fracture. -evaluated by ortho - surgery not recommended * Acute left hip pain due to trauma. - P.r.n. Tylenol, [place] for severe pain. * Acute on chronic hypoxia. - on 4 liters, will continue - Chest x-ray shows copd, emphysema - Echocardiogram show severely dilated r ventricle and mod to severely reduced RV function - CTA performed on 08/16 with findings suggesting chronic partial thrombus in both main pulmonary arteries and bifurcation with enlarged pulmonary arteries centrally indicating underlying PA HTN - CTA also showing severe underlying centrilobular emphysema, and peribronchial wall thickening bilaterally - Pulmonology consulted, appreciate recommendations, started Lasix and Spironolactone PO *Bilateral PE, Chronic - Seen on CTA - Discussed case with Dr. Lewis, Pulmonology, who recommends AC - Transitioned from Heparin gtt to Apixaban, will continue *cardiomyopathy - Cardiology consulted on 08/15 - on ACEI and beta jean-paul, continue B-Jean-Paul, restart CATHY-i as BP tolerates - hx of an [place] per family - also has hx of alcohol use - Continue home ASA - Lasix and Spironolactone as above * Hyperlipidemia. -Resume statin * Osteoporosis. 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 feet, toes - Continue steroid cream BID *underweight w a BMI of 19 *Goals of care - Patient has overall poor prognosis given multiple comorbidities - Discussed with patient who reports he wants to continue current treatment, remain FULL code - Discussed with POA, son, Jared, this afternoon who also wants to continue current tx - Consulted Palliative care for further Goals of Care discussion Time spent on discharge was >35 minutes with >50% of time spent on patient education and counseling.
[2018-08-21 12:16] VITALS: BP 91/50
--- NOTE | 2018-08-21 12:59 | ASMTDCNOTE ---
Case Management Discharge Discharge Order Complete? Answers: Yes Patient to Obtain Answers: Other Notes: [facility] Medications Transportation Arranged Answers: [facility] W/C Transport will Pick (Date 08/21/2018 04:00 PM & Time) EMTALA Complete Answers: No Case Management Transport Answers: Yes Form Complete Faxed Final Orders Answers: Yes Agency/Facility Transfer Answers: Yes Report Printed & Faxed to Receiving Agency Family Notified Answers: Yes Discharge Comments Notes: Pts case discussed in tx rounds. Pt is being d/c'd today. CM notified Kasier is being d/c'd today. Michelle does not need to re-auth. [facility]. Annia RN will call to give report. CM called both of pts children and left them messages about the d/c. CM available for changes. Plan: [facility] Date Signed: 08/21/2018 12:58 PM Electronically Signed By:MIESHA Ryan
--- NOTE | 2018-08-21 15:05 | PDINTPN ---
Air Conditioning Engineer Progress Note Assessment/Plan: Assessment: 87-year-old male with severe COPD and tobacco dependence admitted after a fall in found to have acute on chronic hypoxemic respiratory failure, severe pulmonary hypertension with overt RV failure as well as imaging concerning for atypical chronic thromboembolic disease. # acute on chronic hypoxemic respiratory failure. Due to COPD, as well as secondary pulmonary HTN. # acute right ventricular heart failure # severe pulmonary hypertension # chronic thromboembolic disease. Radiographic appearance is not typical for acute embolism or classic for chronic thromboembolic disease but is more consistent longstanding COPD and possible ASD leading to chronic clot lining the proximal PAs # tobacco dependence. Last smoked 2 weeks ago. 80+ pack year history # hyperlipidemia PLAN # Lasix and spironolactone (K sparing effect and RV remodeling). Continue slow diuresis as tolerated. Currently being held due to mild hypotension. # fluid removal should improve RV coupling and improve hemodynamics # supplemental oxygen to prevent hypoxemia and worsening of pulmonary arterial vasoconstriction # goal negative 1-2 L/day max. # Full-dose anticoagulation with heparin infusion # no role for thrombolysis # no role for hypercoagulability workup # patient is NOT a surgical candidate for pulmonary endarterectomy given advanced COPD, age and functional status # unfortunately, PH specific therapies are relatively contraindicated given patient's severe lung disease and systemic hypotension and would likely worsen his condition # inhaled beta agonists have been shown to improve pulmonary vascular reserve and cardiac output without increases in LVEDP. Circ Res. 2018 Jun 17 # if patient further decompensate suggest transfer to the ICU for vasopressor support # if vasopressor support is needed suggest low-dose dopamine and vasopressin # would defer cardiac catheterization as it would not acutely telephone exchange operator # agree with statin and aspirin therapy as both have disease attenuating properties in COPD # suggest discharging patient on oral Eliquis as he is unlikely to be compliant with Lovenox and lives too far away for regular INR checks with warfarin. # consider calcium and vitamin-D supplementation given likely osteoporosis # suggest having goals of care and advanced directive conversation with patient. He would not survive a cardiopulmonary arrest and has high likelihood of coding upon induction for intubation. # I strongly encouraged him to use supplemental oxygen in order to maintain normal oxygen saturations. He has refused this in the past, seen that is too much of a hassle, but with strong encouragement and explanation of the rationale for using oxygen, he agrees to its use now # I discussed outpatient care with his patient and his daughter. He is going to [facility] for rehab. I reiterated the importance of continuing to use oxygen at all times as well as stopping smoking. I also expressed my concern that he may not do well if he goes back to high altitude, depending on his oxygen needs and his ability to live independently. I will see him back in 4 6 weeks to assess his progress. 08/20/18 15:36 08/21/18 15:04 Subjective: Feels a bit better, with increased energy. Still has some mild cough. Objective: Vital Signs Temp Pulse Resp BP Pulse Ox 36.6 C 89 18 91/50 L 99 08/21/18 12:00 08/21/18 12:00 08/21/18 12:00 08/21/18 12:00 08/21/18 12:00 Laboratory Results 08/21/18 03:17 08/21/18 03:17 08/20/18 08/21/18 08/22/18 05:59 05:59 05:59 Intake Total 680 600 Output Total 275 750 Balance 405 -150 PT 15.3 SEC (12.0-15.0) H 08/16/18 14:50 INR 1.19 (0.83-1.16) H 08/16/18 14:50 Physical Exam - Physical Exam General Appearance: alert, no apparent distress EENT: normal ENT inspection Neck: normal inspection Respiratory: rhonchi Cardiac/Chest: regular rate, rhythm, edema (2+) Abdomen: normal bowel sounds, non-tender Skin: normal color, warm/dry Extremities: normal inspection Neuro/Psych: alert, normal mood/affect, oriented x 3 ICD10 Worksheet Patient Problems: Problems Problem Status Onset Fracture of greater trochanter of left femur Acute
--- NOTE | 2018-08-21 17:02 | ASMTCMCOM ---
CM Note CM Note Notes: CM left a msg for Rosa Elena Catrachito, APS worker (P#: [phone]) and notified her of pts d/c. Date Signed: 08/21/2018 05:02 PM Electronically Signed By:MIESHA Ryan
--- NOTE | 2018-08-21 17:03 | ASDISCHSUM ---
Discharge Information Plan Status:SNF Medically Cleared to Leave:08/20/2018 Discharge Date:08/21/2018 04:00 PM CM D/C Disposition: ADT D/C Disposition[facility] Projected Discharge Date:08/21/2018 11:00 AM Transportation at D/C: Discharge Delay Reason: Follow-Up Date:08/21/2018 11:00 AM Discharge Slot: Final Diagnosis: Placement Information Referral Type:*Long Term/SNF Referral ID:[id number] Provider Name:Soni[facility] Address 1[address] Phone Number: Address 2: Fax Number: [facility]:[place] Selection Factors: State:[place] Referral Type:Palliative Care Referral ID:[id number] Provider Name:[facility] Address 1[address] Phone Number: Address 2: Fax Number: [facility]:[place] Selection Factors: State:[place] Patient Contact Information Contact Name:JENNYFER Relationship:Daughter Address: Work Phone: City: Alternate Phone: State/Zip Code: Email: Financial Information Financial Class:Medicare Advantage Plans Primary Plan Desc:[place] ADV IP Primary Plan Number:[id number] Secondary Plan Desc:[place] Secondary Plan Number:[id number] Assessment Information [facility] Progress Note CM Note CM Note Notes: Pt with numerous co-morbidities here for non-operative L trochanteric fx. [place]. EMS reports a hoarding situation and difficulty entering home. Pt PT/OT eval on hold today as pt is hypotensive. Pt likely needs SNF, [place] will have to approve after therapy evals are in [place]. Pt son Jared present at bedside, numbers in chart. Spoke with pt and son, pt verbalizes understanding of need for SNF and likely not returning to his home in [place] after rehab. Informed pt and son the [place] SNF is [facility]. CM to follow. D/c plan of care: Likely [facility] if [place] approves. Date Signed: 08/15/2018 02:40 PM Electronically Signed By:HENRY Barber [facility] ROSA M Progress Note CM Note CM Note Notes: Per wound care pt will require vianney for applying compression socks if he goes home, pt unable to put them on himself. CM to follow up with OT if pt does not get approved for SNF by [place]. Date Signed: 08/15/2018 03:27 PM Electronically Signed By:HENRY Barber [facility] ROSA M Progress Note CM Note ROSA M Note Notes: ROSA M spoke with pt's son Jared Cary ([phone]). He is working with is siblings to plan for discharge and next steps. CM provided education on Palliative Care and SNF. Provided family with [employer]. ROSA M spoke with pt and he is aware of updates for SNF and agreeable to go to SNF once we get insurance auth. CM submit referral to [facility]. Pt and family wants to speak with Palliative Care team. CM to follow. Plan: [facility] with Palliative Care ([place]). Date Signed: 08/17/2018 02:55 PM Electronically Signed By:MIESHA Emery [facility] ROSA M Progress Note CM Note CM Note Notes: Per hospitalist, patient will transition to oral AC today and likely dc to [facility] tomorrow. I updated Johana as well as patient's son Jared. Case Management will follow. Date Signed: 08/18/2018 02:28 PM Electronically Signed By:Loni Merritt RN [facility] CM Progress Note CM Note CM Note Notes: I spoke with patient's son Jared and Jenny today about next steps after SNF rehab. I explained difference between Assisted Living and [facility] and explained that patient needs [place] [employer] Medicaid in order to go to either place. I encouraged them to work with social services designee at [facility] to begin this application and start looking for facilities. They expressed understanding. I called Rosa Elena Mulligan [facility] APS worker ([phone]) to update her on patient's status (she left a business card at my desk last night). She was not in, and I did not leave a message. We will contact her when patient is d/c'ed. Current CM Discharge plan: [facility] Date Signed: 08/19/2018 02:07 PM Electronically Signed By:Loni Merritt RN [facility] CM Progress Note CM Note CM Note Notes: Pts case discussed in tx rounds this AM. CM spoke to chaplain Giuliano regarding d/c POC. Pt is agreeable to palliative services w/ [facility]. Referral sent to [facility]. Updates sent to [facility]. CM to follow. Plan: [facility] w/ [facility] pal outpatient f/u Date Signed: 08/20/2018 12:20 PM Electronically Signed By:MIESHA Ryan Case Management Discharge Plan Note Case Management Discharge Discharge Order Complete? Answers: Yes Patient to Obtain Answers: Other Notes: [facility] Medications Transportation Arranged Answers: [facility] W/C Transport will Pick (Date 08/21/2018 04:00 PM & Time) EMTALA Complete Answers: No Case Management Transport Answers: Yes Form Complete Faxed Final Orders Answers: Yes Agency/Facility Transfer Answers: Yes Report Printed & Faxed to Receiving Agency Family Notified Answers: Yes Discharge Comments Notes: Pts case discussed in tx rounds. Pt is being d/c'd today. CM notified Michelle is being d/c'd today. Michelle does not need to re-auth. DC orders sent to [facility]. TIRSO Milner will call to give report. CM called both of pts children and left them messages about the d/c. CM available for changes. Plan: [facility] Date Signed: 08/21/2018 12:58 PM Electronically Signed By:MIESHA Ryan [facility] CM Progress Note CM Note CM Note Notes: ROSA M left a msg for Rosa Elena [facility], APS worker (P#: [phone]) and notified her of pts d/c. Date Signed: 08/21/2018 05:02 PM Electronically Signed By:MIESHA Ryan Intervention Information Intervention Type:*IM-Signed Date of Service:08/21/2018 02:23 PM Patient Type:Inpatient Staff Member:Mary Alice Stewatr Hours: Discipline: Severity: Comment:
== END 2018-08-21 16:00 | DRG 535 ==
LOC: EDUNIT# → F3N 08-15 00:45 → F2W 08-15 18:40
PROVIDERS: ADMIT Family Medicine; ATTEND Family Medicine
DX: S72.112A Displaced fracture of greater trochanter of left femur, initial encounter for closed fracture (principal); I26.99 Other pulmonary embolism without acute cor pulmonale; Z68.1 Body mass index [BMI] 19.9 or less, adult; W01.0XXA Fall on same level from slipping, tripping and stumbling without subsequent striking against object, initial encounter; Y92.017 Garden or yard in single-family (private) house as the place of occurrence of the external cause; R09.02 Hypoxemia; R63.6 Underweight; J43.9 Emphysema, unspecified; E78.5 Hyperlipidemia, unspecified; M81.0 Age-related osteoporosis without current pathological fracture; L30.9 Dermatitis, unspecified; I87.8 Other specified disorders of veins; I83.10 Varicose veins of unspecified lower extremity with inflammation; I25.2 Old myocardial infarction; I10 Essential (primary) hypertension; Z91.19 Patient's noncompliance with other medical treatment and regimen; Z72.0 Tobacco use; Z23 Encounter for immunization
CPT/HCPCS: 85520-90; 96374; 97116-GP; 97162-GP; 97166-GO; 97530-GO; 97530-GP; 97535-GO; G0008; G8978-GP-CK; G8979-GP-CJ; J1644; J1940; J3010; Q9967